=== PATIENT | female | born 1985 | race Caucasian/White ===

== ENCOUNTER 2018-01-14 13:59 | Emergency (ER) | payer OTHER ==
[2018-01-14 14:45] VITALS: RESP 18; TEMP 98.6
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
[2018-01-14 16:28] VITALS: BP 109/77; PULSE 76; O2SAT 99
== END 2018-01-14 16:29 | disposition home or self-care (01) ==
LOC: ED 13:59
DX: S09.90XA Unspecified injury of head, initial encounter (principal); V53.6XXA Passenger in pick-up truck or van injured in collision with car, pick-up truck or van in traffic accident, initial encounter; Y92.410 Unspecified street and highway as the place of occurrence of the external cause